=== PATIENT | female | born 1990 | race Caucasian/White ===

== ENCOUNTER 2016-11-19 15:00 | Emergency (ER) | payer OTHER ==
[~2016-11-19] VITALS: Ht 157.4 cm; Wt 68.0 kg
[~2016-11-19 15:00] MED LIST: ALBUTEROL0.09 MG/A2 IH; AMBIEN10 M1 JT; AMBIEN10 M1 PO; AMBIEN5 MG PO; AMOXICILLIN500 MG PO; ANAPROX DS550 MG PO; BACTRIM DS 8001 TA1 PO; BENADRYL25 MG PO; BIRTH CONTROL1 EAC1; CIPRO250 MG PO; CLARITIN-D 12 H1 TAB PO; CLARITIN10 MG PO; CLINDAMYCIN HC300 MG PO; CYCLOBENZAPRINE5 M3 PO; DARVOCET N 1001 TAB PO; DOXYCYCLINE HY100 M3 PO; EFFEXOR XR75 MG PO; FLONASE 0.05% 121 EA NAS; FLONASE0.05 MG/AC NS; FLUTICASON0.05 MG/AC INH; Fioricet 325 MG1 TAB PO; HYDROCODONE BIT1 T11 PO; HYDROXYZINE PAM25 M1 PO; INDERAL LA60 MG PO; LOMOTIL 0.025 M1 TA1 PO; MACROBID100 M1 PO; MEDROL DOSEPAK4 MG PO; MOTRIN800 MG PO; MULTIVITAMIN1 CTB PO; NAPROSYN500 MG PO; PERCOCET 325 MG1 TA7 PO; PHENERGAN W/DM120 ML PO; PHENERGAN12.5 M1 PO; PREDNICOT10 MG PO; PRENATAL1 TA4 PO; PRILOSEC20 MG PO; PROAIR HFA8.5 GM INH; Phenergan25 MG PO; ROBITUSSIN DM 105 ML PO; SEPTRA DS 800 M1 TAB PO; SERTRALINE HYDR50 MG PO; TRAMADOL HCL50 MG PO; VIBRAMYCIN100 MG PO; VICODIN 5/500 505 MG; ZITHROMAX Z PA250 MG PO; ZITHROMAX250 MG PO; ZOFRAN ODT4 MG SL; ZOFRAN4 MG PO; ZYRTEC10 MG PO; Zofran4 MG PO
[2016-11-19 15:05] VITALS: BP 136/79
[2016-11-19] MEDS ORDERED: PREDNISONE10 MG PO (15:17)
== END 2016-11-19 16:56 | disposition home or self-care (01) ==
LOC: ED 15:00
DX: R21 Rash and other nonspecific skin eruption (principal); Z79.899 Other long term (current) drug therapy; Z88.0 Allergy status to penicillin; Z88.6 Allergy status to analgesic agent; Z88.1 Allergy status to other antibiotic agents; Z88.8 Allergy status to other drugs, medicaments and biological substances

== ENCOUNTER 2017-01-25 13:33 | Emergency (ER) | payer OTHER ==
[~2017-01-25] VITALS: Ht 157.4 cm; Wt 72.6 kg
[~2017-01-25 13:33] MED LIST changes: +PREDNISONE10 MG PO
[2017-01-25 13:37] VITALS: BP 128/70
[2017-01-25 14:13] LABS: BASO % 0.2 % (0.0-1.0); EOS # 0.1 10*3/uL (0.0-0.4); HEMATOCRIT 37.5 % (37.0-47.0); HEMOGLOBIN 12.8 g/dl (12.0-16.0); LYMPH # 1.3 10*3/uL (1.3-4.4); LYMPH % 11.2 % (27.0-41.0); MEAN CELL VOLUME 84.3 fl (81.0-99.0); MEAN CORPUSCULAR HGB 28.8 pg (27.0-31.0); MEAN CORPUSCULAR HGB CONC 34.1 g/dl (33.0-37.0); MEAN PLATELET VOLUME 9.9 fl (9.6-12.3); MONO # 0.6 10*3/uL (0.1-1.0); MONO % 5.1 % (3.0-9.0); NEUT # 9.4 10*3/uL (2.3-7.9); NEUT % 82.2 % (47.0-73.0); PLATELET COUNT AUTOMATED 323 10*3/uL (130-400); RED BLOOD COUNT 4.45 10*6/uL (4.10-5.10); RED CELL DISTRI WIDTH 13.4 % (0-14.5); WHITE BLOOD COUNT 11.4 10*3/uL (4.8-10.8)
[2017-01-25 14:21] LABS: BILIRUBIN 1+ (NEGATIVE); BLOOD TRACE-INTACT (NEGATIVE); CLARITY SL CLOUDY (CLEAR); COLOR YELLOW (YELLOW); GLUCOSE NEGATIVE (NEGATIVE); KETONE TRACE (NEGATIVE); LEUKO ESTERASE 2+ (NEGATIVE); NITRITE NEGATIVE (NEGATIVE); PH 5.5 (5.0-9.0); SPECIFIC GRAVITY 1.025 (1.005-1.030); UROBILINOGEN 0.2 E.U./dl (0.2-1.0)
[2017-01-25 14:28] LABS: BACTERIA TRACE; EPITHELIAL CELLS 31-40; WBC 31-40 wbc/hpf (0-5)
[2017-01-25 14:28] LABS: ALBUMIN 3.9 gm/dl (3.1-4.5); ALKALINE PHOSPHATASE 54 U/L (45-117); BUN 13 mg/dl (7-24); CHLORIDE 106 mmol/L (98-107); CREATININE 0.65 mg/dL (0.55-1.02); LIPASE 60 U/L (73-393); POTASSIUM 3.9 mmol/L (3.5-5.1); SGOT/AST 13 IU/L (3-35); SGPT/ALT 17 U/L (12-78); SODIUM 138 mmol/L (136-145); TOTAL PROTEIN 7.7 gm/dL (6.4-8.2)
[2017-01-25] MEDS ORDERED: MACROBID100 M1 PO (14:43)
[2017-01-25] MEDS ORDERED: PROTONIX40 MG PO (14:43)
== END 2017-01-25 14:46 | disposition home or self-care (01) ==
LOC: ED 13:33
PROVIDERS: Nurse Practitioner Family
DX: N39.0 Urinary tract infection, site not specified (principal); K21.9 Gastro-esophageal reflux disease without esophagitis; R31.9 Hematuria, unspecified; Z88.0 Allergy status to penicillin; Z88.1 Allergy status to other antibiotic agents; Z88.6 Allergy status to analgesic agent; Z88.8 Allergy status to other drugs, medicaments and biological substances; Z79.899 Other long term (current) drug therapy

== ENCOUNTER 2017-07-04 15:22 | Emergency (ER) | payer OTHER ==
[~2017-07-04] VITALS: Ht 167.6 cm; Wt 86.2 kg
[~2017-07-04 15:22] MED LIST changes: +PROTONIX40 MG PO
[2017-07-04 15:26] VITALS: BP 118/70
[2017-07-04] MEDS ORDERED: CLINDAMYCIN HC300 MG PO (15:39)
[2017-07-04] MEDS ORDERED: NAPROSYN500 MG PO (15:39)
== END 2017-07-04 15:44 | disposition home or self-care (01) ==
LOC: ED 15:22
DX: K02.9 Dental caries, unspecified (principal); K21.9 Gastro-esophageal reflux disease without esophagitis; Z79.899 Other long term (current) drug therapy; Z88.0 Allergy status to penicillin; Z88.6 Allergy status to analgesic agent; Z88.1 Allergy status to other antibiotic agents; Z88.8 Allergy status to other drugs, medicaments and biological substances

== ENCOUNTER 2017-11-30 14:47 | Emergency (ER) | payer OTHER ==
[~2017-11-30] VITALS: Ht 165.1 cm; Wt 77.1 kg
[2017-11-30] MEDS ORDERED: NAPROSYN500 MG PO (15:04)
[2017-11-30] MEDS ORDERED: CLINDAMYCIN HC300 MG PO (15:04)
[2017-11-30 15:12] VITALS: BP 106/64
== END 2017-11-30 15:20 | disposition home or self-care (01) ==
LOC: ED 14:47
DX: K04.7 Periapical abscess without sinus (principal); Z88.0 Allergy status to penicillin; Z88.5 Allergy status to narcotic agent; Z88.1 Allergy status to other antibiotic agents; Z79.899 Other long term (current) drug therapy

== ENCOUNTER 2020-04-20 22:59 | Observation (INO) | payer OTHER ==
[~2020-04-20] VITALS: Ht 162.5 cm; Wt 83.9 kg
[2020-04-20 23:08] VITALS: BP 117/81
[2020-04-20] MEDS ORDERED: FLUOXETINE HYDR20 M1 PO (23:14)
[2020-04-20] MEDS ORDERED: MIRTAZAPINE30 M2 PO (23:14)
[2020-04-20] MEDS ORDERED: RISPERIDONE1 MG PO (23:14)
[2020-04-21] VITALS (10 sets, daily range): BP systolic 117–138; BP diastolic 74–82
[2020-04-21 00:22] LABS: BASO % 0.3 % (0.0-1.0); EOS # 0.1 10*3/uL (0.0-0.4); EOS % 1.2 % (1.0-4.0); LYMPH % 20.2 % (27.0-41.0); MEAN CELL VOLUME 88.6 fl (81.0-99.0); MEAN CORPUSCULAR HGB 29.2 pg (27.0-31.0); MEAN CORPUSCULAR HGB CONC 32.9 g/dl (33.0-37.0); MEAN PLATELET VOLUME 10.4 fl (9.6-12.3); MONO # 0.6 10*3/uL (0.1-1.0); MONO % 5.5 % (3.0-9.0); NEUT # 7.2 10*3/uL (2.3-7.9); NEUT % 72.4 % (47.0-73.0); PLATELET COUNT AUTOMATED 333 10*3/uL (130-400); RED BLOOD COUNT 4.63 10*6/uL (4.10-5.10); RED CELL DISTRI WIDTH 13.6 % (0-14.5)
[2020-04-21 00:38] LABS: ALBUMIN 3.7 gm/dl (3.1-4.5); ALKALINE PHOSPHATASE 55 U/L (45-117); BUN 14 mg/dl (7-24); CHLORIDE 108 mmol/L (98-107); CREATININE 0.98 mg/dL (0.55-1.02); POTASSIUM 3.7 mmol/L (3.5-5.1); SGOT/AST 26 IU/L (3-35); SGPT/ALT 37 U/L (12-78); SODIUM 139 mmol/L (136-145); TOTAL PROTEIN 7.7 gm/dL (6.4-8.2)
[2020-04-21 01:50] LABS: BILIRUBIN Negative (Negative); BLOOD Negative (Negative); CLARITY Clear (Clear); COLOR Yellow (Yellow); GLUCOSE Negative (Negative); KETONE Trace (Negative); LEUKO ESTERASE Negative (Negative); NITRITE Negative (Negative); SPECIFIC GRAVITY 1.025 (1.001-1.030)
[2020-04-21 01:59] LABS: URINE AMPHETAMINES < 1000 (1000ng/ml); URINE BARBITURATES < 200 (200ng/ml); URINE BENZODIAZEPINES < 200 (200ng/ml); URINE CANNABINOIDS (THC) < 50 (50ng/ml); URINE COCAINE < 300 (300ng/ml); URINE METHADONE < 300 (300ng/ml); URINE OPIATES < 300 (300ng/ml)
[2020-04-21 02:00] LABS: RBC 0-2 rbc/hpf (0-2)
[2020-04-21 02:01] LABS: BACTERIA TRACE; URINE PHENCYCLIDINE < 25 (25ng/ml)
[2020-04-21 06:16] LABS: BASO % 0.2 % (0.0-1.0); EOS # 0.1 10*3/uL (0.0-0.4); EOS % 0.9 % (1.0-4.0); LYMPH # 2.7 10*3/uL (1.3-4.4); LYMPH % 26.8 % (27.0-41.0); MEAN CELL VOLUME 87.6 fl (81.0-99.0); MEAN CORPUSCULAR HGB 28.8 pg (27.0-31.0); MEAN CORPUSCULAR HGB CONC 32.9 g/dl (33.0-37.0); MEAN PLATELET VOLUME 10.4 fl (9.6-12.3); MONO # 0.5 10*3/uL (0.1-1.0); MONO % 5.1 % (3.0-9.0); NEUT # 6.7 10*3/uL (2.3-7.9); NEUT % 66.7 % (47.0-73.0); PLATELET COUNT AUTOMATED 317 10*3/uL (130-400); RED BLOOD COUNT 4.34 10*6/uL (4.10-5.10); RED CELL DISTRI WIDTH 13.4 % (0-14.5); WHITE BLOOD COUNT 10.1 10*3/uL (4.8-10.8)
[2020-04-21 06:25] LABS: ALBUMIN 3.3 gm/dl (3.1-4.5); ALKALINE PHOSPHATASE 47 U/L (45-117); BUN 13 mg/dl (7-24); CHLORIDE 111 mmol/L (98-107); CREATININE 0.71 mg/dL (0.55-1.02); POTASSIUM 3.5 mmol/L (3.5-5.1); SGOT/AST 24 IU/L (3-35); SGPT/ALT 36 U/L (12-78); SODIUM 140 mmol/L (136-145); TOTAL PROTEIN 6.9 gm/dL (6.4-8.2)
[2020-04-21 06:27] LABS: FREE T4 0.81 ng/dl (0.76-1.46)
[2020-04-21 06:34] LABS: ACT PARTIAL THROMBO TIME 26.8 SECONDS (20.0-32.1); INTERNATIONAL NORM RATIO 0.9 (2.0-3.5)
[2020-04-21 09:30] LABS: VITAMIN D, 25-HYDROXY 13.2 ng/mL (30-100)
[2020-04-22] VITALS: BP 145/86
[2020-04-22 06:43] LABS: BUN 10 mg/dl (7-24); CHLORIDE 108 mmol/L (98-107); CREATININE 0.72 mg/dL (0.55-1.02); POTASSIUM 3.7 mmol/L (3.5-5.1); SODIUM 138 mmol/L (136-145)
[2020-04-22 06:47] LABS: BASO % 0.4 % (0.0-1.0); EOS # 0.2 10*3/uL (0.0-0.4); LYMPH # 2.9 10*3/uL (1.3-4.4); LYMPH % 27.4 % (27.0-41.0); MEAN CELL VOLUME 87.4 fl (81.0-99.0); MEAN CORPUSCULAR HGB 28.6 pg (27.0-31.0); MEAN CORPUSCULAR HGB CONC 32.7 g/dl (33.0-37.0); MEAN PLATELET VOLUME 10.4 fl (9.6-12.3); MONO # 0.6 10*3/uL (0.1-1.0); MONO % 5.8 % (3.0-9.0); NEUT # 6.7 10*3/uL (2.3-7.9); PLATELET COUNT AUTOMATED 377 10*3/uL (130-400); RED BLOOD COUNT 4.69 10*6/uL (4.10-5.10); RED CELL DISTRI WIDTH 13.8 % (0-14.5); WHITE BLOOD COUNT 10.5 10*3/uL (4.8-10.8)
[2020-04-22 08:00] VITALS: BP 116/74
[2020-04-22 12:00] VITALS: BP 113/65
[2020-04-22] MEDS ORDERED: VITAMIN B-1250 MCG PO (14:41)
[2020-04-22] MEDS ORDERED: VITAMIN D350 MC2 PO (14:41)
== END 2020-04-22 16:20 | disposition home or self-care (01) ==
LOC: ED 22:59 → EDHOLD 04-21 05:25 → 5E 04-21 17:36
PROVIDERS: Emergency Medicine; Hospitalist; Internal Medicine; ADMIT Internal Medicine; ATTEND Internal Medicine
DX: T43.225A Adverse effect of selective serotonin reuptake inhibitors, initial encounter (principal); R00.0 Tachycardia, unspecified; R09.02 Hypoxemia; F41.9 Anxiety disorder, unspecified; F32.9 Major depressive disorder, single episode, unspecified; G93.41 Metabolic encephalopathy; N39.0 Urinary tract infection, site not specified; K21.9 Gastro-esophageal reflux disease without esophagitis; J30.2 Other seasonal allergic rhinitis; R42 Dizziness and giddiness; H53.8 Other visual disturbances; J45.901 Unspecified asthma with (acute) exacerbation; Y92.89 Other specified places as the place of occurrence of the external cause

== ENCOUNTER 2021-08-16 20:31 | Emergency (ER) | payer OTHER ==
[~2021-08-16] VITALS: Ht 157.4 cm; Wt 72.6 kg
[~2021-08-16 20:31] MED LIST changes: +FLUOXETINE HYDR20 M1 PO; +MIRTAZAPINE30 M2 PO; +RISPERIDONE1 MG PO; +VITAMIN B-1250 MCG PO; +VITAMIN D350 MC2 PO
[2021-08-16 20:35] VITALS: BP 125/104
[2021-08-16 21:15] LABS: BASO # 0.1 10*3/uL (0.0-0.1); BASO % 0.2 % (0.0-1.0); EOS # 0.1 10*3/uL (0.0-0.4); EOS % 0.5 % (1.0-4.0); HEMATOCRIT 39.4 % (37.0-47.0); LYMPH # 1.1 10*3/uL (1.3-4.4); LYMPH % 4.8 % (27.0-41.0); MEAN CELL VOLUME 86.6 fl (81.0-99.0); MEAN CORPUSCULAR HGB 29.9 pg (27.0-31.0); MEAN CORPUSCULAR HGB CONC 34.5 g/dl (33.0-37.0); MEAN PLATELET VOLUME 10.3 fl (9.6-12.3); MONO # 1.1 10*3/uL (0.1-1.0); MONO % 4.7 % (3.0-9.0); NEUT % 89.3 % (47.0-73.0); PLATELET COUNT AUTOMATED 341 10*3/uL (130-400); RED BLOOD COUNT 4.55 10*6/uL (4.10-5.10); RED CELL DISTRI WIDTH 12.3 % (0-14.5); WHITE BLOOD COUNT 22.4 10*3/uL (4.8-10.8)
[2021-08-16 21:30] LABS: ALKALINE PHOSPHATASE 57 U/L (45-117); BUN 8 mg/dl (7-24); CHLORIDE 106 mmol/L (98-107); CREATININE 0.73 mg/dL (0.55-1.02); POTASSIUM 3.4 mmol/L (3.5-5.1); SGOT/AST 6 IU/L (3-35); SGPT/ALT 22 U/L (12-78); SODIUM 135 mmol/L (136-145)
== END 2021-08-16 22:48 | disposition home or self-care (01) ==
LOC: ED 20:31
PROVIDERS: Internal Medicine
DX: J06.9 Acute upper respiratory infection, unspecified (principal); Z20.822 Contact with and (suspected) exposure to COVID-19; D72.829 Elevated white blood cell count, unspecified; E87.6 Hypokalemia

== ENCOUNTER → 2021-09-17 | Outpatient (CLI) | payer OTHER ==
[2021-09-17 11:57] LABS: BASO % 0.3 % (0.0-1.0); EOS # 0.2 10*3/uL (0.0-0.4); EOS % 3.1 % (1.0-4.0); HEMATOCRIT 39.4 % (37.0-47.0); LYMPH # 2.1 10*3/uL (1.3-4.4); LYMPH % 27.8 % (27.0-41.0); MEAN CELL VOLUME 87.9 fl (81.0-99.0); MEAN CORPUSCULAR HGB 29.7 pg (27.0-31.0); MEAN CORPUSCULAR HGB CONC 33.8 g/dl (33.0-37.0); MEAN PLATELET VOLUME 9.8 fl (9.6-12.3); MONO # 0.5 10*3/uL (0.1-1.0); MONO % 6.6 % (3.0-9.0); NEUT # 4.6 10*3/uL (2.3-7.9); NEUT % 62.1 % (47.0-73.0); PLATELET COUNT AUTOMATED 368 10*3/uL (130-400); RED BLOOD COUNT 4.48 10*6/uL (4.10-5.10); RED CELL DISTRI WIDTH 12.8 % (0-14.5); WHITE BLOOD COUNT 7.5 10*3/uL (4.8-10.8)
[2021-09-17 12:14] LABS: ALKALINE PHOSPHATASE 60 U/L (45-117); BUN 7 mg/dl (7-24); CHLORIDE 107 mmol/L (98-107); CREATININE 0.72 mg/dL (0.55-1.02); POTASSIUM 3.9 mmol/L (3.5-5.1); SGOT/AST 19 IU/L (3-35); SGPT/ALT 60 U/L (12-78); SODIUM 140 mmol/L (136-145); TOTAL PROTEIN 7.8 gm/dL (6.4-8.2)
[2021-09-17 13:43] LABS: VITAMIN D, 25-HYDROXY 13.5 ng/mL (30-100)
== END | disposition home or self-care (01) ==
LOC: LAB 11:40
PROVIDERS: ATTEND Internal Medicine Nephrology
DX: F32.9 Major depressive disorder, single episode, unspecified (principal); F32.A Depression, unspecified; J01.80 Other acute sinusitis; R10.13 Epigastric pain; K92.1 Melena

== ENCOUNTER → 2021-09-18 | Outpatient (CLI) | payer OTHER | END | disposition home or self-care (01) | LOC: LAB 18:24 | PROVIDERS: ATTEND Internal Medicine Nephrology | DX: F32.A Depression, unspecified (principal); J01.80 Other acute sinusitis; R10.13 Epigastric pain; K92.1 Melena ==

== ENCOUNTER 2021-10-01 13:22 | Emergency (ER) | payer OTHER ==
[~2021-10-01] VITALS: Ht 157.4 cm; Wt 77.1 kg
[2021-10-01 13:30] VITALS: BP 113/65
[2021-10-01 15:01] LABS: BASO % 0.5 % (0.0-1.0); EOS % 0.5 % (1.0-4.0); HEMATOCRIT 39.4 % (37.0-47.0); LYMPH % 25.8 % (27.0-41.0); MEAN CELL VOLUME 86.8 fl (81.0-99.0); MEAN CORPUSCULAR HGB 28.9 pg (27.0-31.0); MEAN CORPUSCULAR HGB CONC 33.2 g/dl (33.0-37.0); MONO # 0.3 10*3/uL (0.1-1.0); MONO % 8.9 % (3.0-9.0); NEUT # 2.5 10*3/uL (2.3-7.9); PLATELET COUNT AUTOMATED 286 10*3/uL (130-400); RED BLOOD COUNT 4.54 10*6/uL (4.10-5.10); RED CELL DISTRI WIDTH 12.7 % (0-14.5); WHITE BLOOD COUNT 3.8 10*3/uL (4.8-10.8)
[2021-10-01 15:18] LABS: ALKALINE PHOSPHATASE 46 U/L (45-117); BUN 7 mg/dl (7-24); CHLORIDE 110 mmol/L (98-107); CREATININE 0.65 mg/dL (0.55-1.02); LIPASE 97 U/L (73-393); POTASSIUM 3.5 mmol/L (3.5-5.1); SGOT/AST 13 IU/L (3-35); SGPT/ALT 15 U/L (12-78); SODIUM 135 mmol/L (136-145); TOTAL PROTEIN 7.7 gm/dL (6.4-8.2)
[2021-10-01 15:22] LABS: BETA-HCG, QUANT < 1.0 mIU/mL (1-3)
[2021-10-01 15:37] LABS: BILIRUBIN Negative (Negative); BLOOD Negative (Negative); CLARITY Cloudy (Clear); COLOR Yellow (Yellow); GLUCOSE Negative (Negative); KETONE Trace (Negative); LEUKO ESTERASE 2+ (Negative); NITRITE Negative (Negative); UROBILINOGEN 0.2 E.U./dl (0.0-1.0)
[2021-10-01 15:43] LABS: BACTERIA 1+; RBC 0-2 rbc/hpf (0-2); WBC 21-30 wbc/hpf (0-5)
[2021-10-01] MEDS ORDERED: MACROBID100 M1 PO (18:51)
== END 2021-10-01 18:53 | disposition home or self-care (01) ==
LOC: ED 13:22
PROVIDERS: Emergency Medicine
DX: N39.0 Urinary tract infection, site not specified (principal); Z88.0 Allergy status to penicillin; Z88.1 Allergy status to other antibiotic agents; Z79.899 Other long term (current) drug therapy

== ENCOUNTER → 2021-10-22 | Outpatient (CLI) | payer OTHER | END | disposition home or self-care (01) | LOC: US 10:30 | PROVIDERS: ATTEND Internal Medicine Nephrology | DX: K76.0 Fatty (change of) liver, not elsewhere classified (principal); K80.20 Calculus of gallbladder without cholecystitis without obstruction; J01.80 Other acute sinusitis ==

== ENCOUNTER 2023-03-08 09:59 | Emergency (ER) | payer OTHER ==
[~2023-03-08] VITALS: Wt 81.6 kg
[2023-03-08 10:29] VITALS: BP 121/75
[2023-03-08] MEDS ORDERED: ZITHROMAX250 MG PO (11:29)
[2023-03-08] MEDS ORDERED: PREDNISONE50 MG PO (11:29)
[2023-03-08] MEDS ORDERED: TAMIFLU 75MG CA75 MG PO (11:29)
[2023-03-08] MEDS ORDERED: PROVENTIL HFA6.7 GM INH (11:29)
== END 2023-03-08 13:56 | disposition home or self-care (01) ==
LOC: ED 09:59
DX: J45.901 Unspecified asthma with (acute) exacerbation (principal); F41.9 Anxiety disorder, unspecified; F32.A Depression, unspecified; G43.909 Migraine, unspecified, not intractable, without status migrainosus; Z20.828 Contact with and (suspected) exposure to other viral communicable diseases; Z88.0 Allergy status to penicillin; Z88.1 Allergy status to other antibiotic agents; Z98.890 Other specified postprocedural states; Z20.822 Contact with and (suspected) exposure to COVID-19

== ENCOUNTER 2023-06-19 13:38 | Emergency (ER) | payer OTHER ==
[~2023-06-19] VITALS: Ht 157.4 cm; Wt 73.9 kg
[~2023-06-19 13:38] MED LIST changes: +PREDNISONE50 MG PO; +PROVENTIL HFA6.7 GM INH; +TAMIFLU 75MG CA75 MG PO
[2023-06-19 13:47] VITALS: BP 121/53
[2023-06-19] MEDS ORDERED: ZITHROMAX250 MG PO (15:23)
[2023-06-19] MEDS ORDERED: AZITHROMYCIN 250 MG TAB PO ONE ×2 (15:25→15:35)
== END 2023-06-19 15:45 | disposition home or self-care (01) ==
LOC: ED 13:38
DX: J18.9 Pneumonia, unspecified organism (principal); Z20.822 Contact with and (suspected) exposure to COVID-19; Z88.0 Allergy status to penicillin; Z88.1 Allergy status to other antibiotic agents; Z79.899 Other long term (current) drug therapy; Z79.2 Long term (current) use of antibiotics

== ENCOUNTER → 2023-07-09 | Outpatient (CLI) | payer OTHER | END | disposition home or self-care (01) | LOC: RAD 12:34 | PROVIDERS: ATTEND Internal Medicine Nephrology | DX: J18.9 Pneumonia, unspecified organism (principal); R91.8 Other nonspecific abnormal finding of lung field ==

== ENCOUNTER → 2023-07-30 | Outpatient (CLI) | payer OTHER ==
[2023-07-30 16:22] LABS: BASO % 0.4 % (0.0-1.0); EOS # 0.1 10*3/uL (0.0-0.4); EOS % 1.3 % (1.0-4.0); HEMATOCRIT 39.3 % (37.0-47.0); LYMPH # 1.9 10*3/uL (1.3-4.4); MEAN CELL VOLUME 84.3 fl (81.0-99.0); MEAN CORPUSCULAR HGB 28.3 pg (27.0-31.0); MEAN CORPUSCULAR HGB CONC 33.6 g/dl (33.0-37.0); MEAN PLATELET VOLUME 10.4 fl (9.6-12.3); MONO # 0.4 10*3/uL (0.1-1.0); NEUT % 71.1 % (47.0-73.0); PLATELET COUNT AUTOMATED 362 10*3/uL (130-400); RED BLOOD COUNT 4.66 10*6/uL (4.10-5.10); RED CELL DISTRI WIDTH 13.2 % (0-14.5); WHITE BLOOD COUNT 8.4 10*3/uL (4.8-10.8)
[2023-07-30 16:45] LABS: FREE T4 0.86 ng/dl (0.89-1.76)
== END ==
LOC: LAB 16:04
PROVIDERS: ATTEND Internal Medicine Nephrology
DX: G25.81 Restless legs syndrome (principal)

== ENCOUNTER 2023-09-09 15:14 | Emergency (ER) | payer OTHER ==
[~2023-09-09] VITALS: Ht 157.4 cm; Wt 85.7 kg
[2023-09-09 15:30] VITALS: BP 122/70
[2023-09-09 16:08] LABS: BASO % 0.4 % (0.0-1.0); EOS # 0.1 10*3/uL (0.0-0.4); EOS % 1.7 % (1.0-4.0); HEMATOCRIT 43.1 % (37.0-47.0); LYMPH # 2.2 10*3/uL (1.3-4.4); LYMPH % 25.9 % (27.0-41.0); MEAN CELL VOLUME 84.8 fl (81.0-99.0); MEAN CORPUSCULAR HGB 28.7 pg (27.0-31.0); MEAN CORPUSCULAR HGB CONC 33.9 g/dl (33.0-37.0); MEAN PLATELET VOLUME 10.2 fl (9.6-12.3); MONO # 0.4 10*3/uL (0.1-1.0); MONO % 4.8 % (3.0-9.0); NEUT # 5.7 10*3/uL (2.3-7.9); PLATELET COUNT AUTOMATED 401 10*3/uL (130-400); RED BLOOD COUNT 5.08 10*6/uL (4.10-5.10); RED CELL DISTRI WIDTH 13.2 % (0-14.5); WHITE BLOOD COUNT 8.5 10*3/uL (4.8-10.8)
[2023-09-09 16:23] LABS: BUN 13 mg/dl (9-23); CHLORIDE 105 mmol/L (98-107); POTASSIUM 4.2 mmol/L (3.4-5.1)
== END 2023-09-09 18:40 | disposition home or self-care (01) ==
LOC: ED 15:14
PROVIDERS: Nurse Practitioner Family
DX: K64.8 Other hemorrhoids (principal); F41.9 Anxiety disorder, unspecified; J45.909 Unspecified asthma, uncomplicated; F32.A Depression, unspecified; K21.9 Gastro-esophageal reflux disease without esophagitis; E78.00 Pure hypercholesterolemia, unspecified; E87.6 Hypokalemia; G43.909 Migraine, unspecified, not intractable, without status migrainosus; Z88.0 Allergy status to penicillin; Z88.8 Allergy status to other drugs, medicaments and biological substances; Z98.890 Other specified postprocedural states

== ENCOUNTER 2024-10-02 13:32 | Emergency (ER) | payer OTHER ==
[~2024-10-02] VITALS: Ht 162.5 cm; Wt 86.2 kg
[2024-10-02 13:40] VITALS: BP 117/62
[2024-10-02] MEDS ORDERED: IBUPROFEN 800 MG TAB PO ONE (15:30)
== END 2024-10-02 15:22 | disposition home or self-care (01) ==
LOC: ED 13:32
DX: S93.402A Sprain of unspecified ligament of left ankle, initial encounter (principal); J45.909 Unspecified asthma, uncomplicated; F32.A Depression, unspecified; F41.9 Anxiety disorder, unspecified; Z79.899 Other long term (current) drug therapy; Z88.0 Allergy status to penicillin; Z88.8 Allergy status to other drugs, medicaments and biological substances; Z98.890 Other specified postprocedural states; X50.1XXA Overexertion from prolonged static or awkward postures, initial encounter; Y93.89 Activity, other specified; Y92.89 Other specified places as the place of occurrence of the external cause; Y99.8 Other external cause status